=== PATIENT | female | born 1995 | race Two or more races ===

== ENCOUNTER → 2019-12-30 08:47 | Outpatient (BNVA) | payer OTHER, SELFPAY | PROVIDERS: PCP Internal Medicine; Visit Provider Advanced Practice Midwife | DX: Z32.01 Encounter for pregnancy test, result positive (principal) | CPT/HCPCS: 99211 ==

== ENCOUNTER → 2020-01-28 14:10 | Outpatient (BNVA) | payer OTHER, SELFPAY | DX: O98.511 Other viral diseases complicating pregnancy, first trimester (principal); Z3A.09 9 weeks gestation of pregnancy | CPT/HCPCS: 99212 ==

== ENCOUNTER 2020-01-29 15:32 | Outpatient (REF) | payer OTHER, SELFPAY ==
[2020-01-29 16:35] LABS: MANUAL DIFF FLAG NO
[2020-01-29 16:38] LABS: Basophils Percent Auto 0.4 % (0-2); Eosinophils Absolute Auto 0.1 X10*3/uL (0.0-0.4); Eosinophils Percent Auto 0.9 % (0-4); Hematocrit 41.3 % (37-47); Imm Gran Abs Auto 0.02 X10*3/uL (0.00-0.03); Imm Gran Pct Auto 0.2 % (0.0-0.4); Lymphocytes Percent Auto 23.8 % (20-40); Mean Corpuscular HGB Conc 33.9 g/dl (31.0-35.0); Mean Corpuscular Hemoglobin 29.2 pg (27.0-33.0); Mean Corpuscular Volume 86.2 fL (80-98); Mean Platelet Volume 10.5 fL (9.4-12.3); Monocytes Absolute Auto 0.5 X10*3/uL (0.1-1.2); Monocytes Percent Auto 6.6 % (2-11); Neutrophils Absolute Auto 5.6 X10*3/uL (2.0-8.3); Neutrophils Percent Auto 68.1 % (45-73); Platelet Count 289 X10*3/uL (160-400); Red Blood Count 4.79 X10*6/uL (4.20-5.50); White Blood Count 8.2 X10*3/uL (4.8-10.8)
[2020-01-29 17:02] LABS: Amphetamine Screen Urine Not Detected (Not Detect); Barbiturates, Urine Not Detected (Not Detect); Benzodiazepines Screen Urine Not Detected (Not Detect); Cannabinoid Screen Urine Not Detected (Not Detect); Cocaine Screen Urine Not Detected (Not Detect); Opiate Screen Urine Not Detected (Not Detect); Phencyclidine Screen Urine Not Detected (Not Detect)
[2020-01-30 03:29] LABS: Syphilis Screen Nonreactive (Nonreactive)
[2020-01-30 03:41] LABS: HBsAGNum1 0.18 S/CO (0.00-0.99); HIV AB/AG Nonreactive (Nonreactive); HIV Num 1 0.13 S/CO (0.00-0.99); Hepatitis B Surface Antigen Negative (Negative); ~HepC Num1 0.12 S/CO (0.00-0.79); ~Hepatitis C Antibody Nonreactive (Nonreactive)
[2020-01-30 08:51] LABS: Varicella IgG Antibody <135.00 index
== END 2020-01-29 15:33 | disposition home or self-care (01) ==
LOC: HO.LAB 15:32
PROVIDERS: PCP Internal Medicine; Visit Provider Advanced Practice Midwife
DX: Z34.90 Encounter for supervision of normal pregnancy, unspecified, unspecified trimester (principal); Z3A.00 Weeks of gestation of pregnancy not specified
CPT/HCPCS: 36415; 80307; 85025; 86762; 86780; 86787; 86803; 86850; 86900; 86901; 87086; 87340; 87389

== ENCOUNTER 2020-02-17 08:04 | Outpatient (REF) | payer OTHER, SELFPAY ==
[2020-02-17 10:12] LABS: Glucose Fasting 94 mg/dL (60-99)
[2020-02-17 11:20] LABS: Glucose 1 Hour 107 mg/dL
[2020-02-21 04:32] LABS: CT PCR NOT DETECTED (Not Detect.); NG PCR NOT DETECTED (Not Detect.)
== END 2020-02-17 08:05 | disposition home or self-care (01) ==
LOC: HO.LAB 08:04
PROVIDERS: PCP Internal Medicine; Visit Provider Advanced Practice Midwife
DX: Z34.91 Encounter for supervision of normal pregnancy, unspecified, first trimester (principal); Z3A.00 Weeks of gestation of pregnancy not specified
CPT/HCPCS: 82951; 86850; 86900; 86901; 87491; 87591

== ENCOUNTER 2020-02-20 13:06 | Outpatient (REF) | payer OTHER, SELFPAY ==
--- NOTE | 2020-02-20 13:10 | US_ITS ---
EXAMINATION: OBSTETRICAL ULTRASOUND, FIRST TRIMESTER HISTORY: 24-year-old at 13.1 weeks of gestation NT screening High BMI: 35.3 COMPARISON: None in this TECHNIQUE: Real time transabdominal imaging with color and M-mode Doppler. FINDINGS: A single, live IUP CRL of 62.7 mm c/w 12.5wks is noted. Heart Rate: 150 beats per minute. Normal yolk sac seen. NT was 1.33.mm. NB Present The embryo appears sonographically wnl for this GA. Both maternal ovaries are seen and appear normal. GESTATIONAL AGE: 1. Established GA: 13.1 wks 2. GA from [facility]: 12.5 wks ESTIMATED DATE OF DELIVERY: 1. Established MANUEL: 08/26/2020 2. MANUEL from [facility]: 08/29/2020 US/US OB 1T nuc measure IMPRESSION: 1. A single live IUP 2. Size equals dates 3. NT of 1.33 mm MFM Consultation: I reviewed the ultrasound findings along with significance of NT measurement. The NT of less than 3mm is generally reassuring. However, the sensitivity for T21 detection is only 60%. I reviewed the availability of serum aneuploidy screening which includes cell-free DNA and placental protein based tests. I discussed the sensitivity, false-positive rate, and other limitations associated with each test. I also reviewed the availability of invasive diagnostic tests that are associated small but definite risk of miscarriage. We also reviewed the differences between screening tests and diagnostic tests. After our discussion, she opted for the First trimester screening that is based on cell-free DNA or non-invasive testing (NIPT). The result will be faxed to your office in approximately 7 days. A follow up at 18 weeks for survey has been scheduled. Thank you very much for this referral. Majority of this visit was spent reviewing her care and counselling her in face to face time: Time spent 30 min.
== END 2020-02-20 13:07 | disposition home or self-care (01) ==
LOC: HO.US 13:06
PROVIDERS: PCP Internal Medicine; Visit Provider Advanced Practice Midwife
DX: Z36.82 Encounter for antenatal screening for nuchal translucency (principal); Z3A.13 13 weeks gestation of pregnancy
CPT/HCPCS: 76813

== ENCOUNTER → 2020-03-16 08:05 | Outpatient (BNVA) | payer OTHER, SELFPAY | PROVIDERS: PCP Internal Medicine; Visit Provider Advanced Practice Midwife | DX: Z76.89 Persons encountering health services in other specified circumstances (principal) | CPT/HCPCS: 99212 ==

== ENCOUNTER 2020-04-02 08:22 | Outpatient (REF) | payer OTHER, SELFPAY ==
--- NOTE | 2020-04-02 08:27 | US_ITS ---
EXAMINATION: US OBSTETRICAL CLINICAL INFORMATION: 24-year-old at 19.1 gestation Suspected anomaly COMPARISON: 02/20/2020 TECHNIQUE: Real-time transabdominal ultrasound was performed using C1-5 megahertz transducer. FINDINGS: A single, active, fetus is seen in vertex presentation. The placenta is anterior without previa, and the amniotic fluid volume is wnl. MEASUREMENTS: 1. Biparietal Diameter: 4.3 cm; 19.1 wks 2. Occipital Frontal Diameter: 5.4 cm 3. Head Circumference: 16.2 cm; 19.0 wks 4. Abdominal Circumference: 13.4 cm; 19.0 wks 5. Femur Length: 2.9 cm; 18.6 wks 6. Humerus Length: 2.7 cm; 18.4 wks 7. Tibia Length: 2.4 cm; 18.5 wks 8. Ulna Length: N/A cm; wks 9. Lateral ventricle: 0.57 cm 10. Cerebellum: 1.9 cm; 19.3 wks 11. Cisterna Magna: 0 point cm 12. Nuchal Fold: 4.2 mm 13. Heart Rate: 138 beats per minute Rt ovary: normal Lt ovary: normal Cervical length 4.6 cm on T/A. GESTATIONAL AGE: 1. Established GA: 19.1 wks 2. GA from [facility]: 19.0 wks ESTIMATED DATE OF DELIVERY: 1. Established MANUEL: 08/26/2020 2. MANUEL from [facility]: 08/27/2020 ANATOMY: The visualized anatomy includes but not limited to: 1. Cranium: Normal 2. Intracranial anatomy: cavum septum pellucidi, lateral ventricles, choroid plexus, cerebellum, posterior fossa, third and fourth ventricles. 3. face: orbits, lip/palate, profile, nasal bone 4. Heart: four-chamber view of the heart, ventricular septum, foramen ovale, pulmonary vein, left and right outflow tracts, three-vessel view, 3 vessel trachea view, aortic and ductal arches, situs.. 5. Diaphragm: Normal 6. Abdominal wall: Normal 7. Cord Insertion: Normal 8. Spine: Cervical, thoracic, lumbar, sacral. 9. Stomach: Normal size and shape 10. Right Kidney: Normal 11. Left Kidney: Normal 12. 3 vessel cord: Normal 13. Upper extremity: Open hands, fifth digit. 14. Lower extremity: Tibia, fibula, bilateral feet. 15. Bladder: Normal 16. Genitalia: Male, patient aware US/US OB /maternal detail IMPRESSION: 1. Single, living, intrauterine with appropriate biometry. 2. Normal survey DISCUSSION: I reviewed today's ultrasound findings. We discussed the limitations of ultrasound in diagnosing aneuploidy and other congenital abnormalities. I reviewed the differences between screening test and diagnostic test. Amniocentesis was discussed and declined. She was informed that the baseline incidence of congenital abnormalities is approximately 3-5%. Not all these conditions are diagnosable in utero. RECOMMENDATIONS: 1. No further exam scheduled. Thank you for allowing me to participate in her care. Total time 20 (3, 10,7) minutes.
== END 2020-04-02 08:23 | disposition home or self-care (01) ==
LOC: HO.US 08:22
PROVIDERS: PCP Internal Medicine; Visit Provider Advanced Practice Midwife
DX: O35.9XX0 Maternal care for (suspected) fetal abnormality and damage, unspecified, not applicable or unspecified (principal); Z3A.19 19 weeks gestation of pregnancy
CPT/HCPCS: 76811

== ENCOUNTER → 2020-04-16 10:01 | Outpatient (BNVA) | payer OTHER, SELFPAY | PROVIDERS: Visit Provider Advanced Practice Midwife | DX: Z34.02 Encounter for supervision of normal first pregnancy, second trimester (principal) | CPT/HCPCS: 81003; 99212 ==

== ENCOUNTER → 2020-05-14 08:05 | Outpatient (BNVA) | payer OTHER, SELFPAY | PROVIDERS: Visit Provider Advanced Practice Midwife | DX: Z34.92 Encounter for supervision of normal pregnancy, unspecified, second trimester (principal) | CPT/HCPCS: 81003; 99212 ==

== ENCOUNTER 2020-06-07 08:12 | Outpatient (REF) | payer OTHER, SELFPAY ==
[2020-06-07 10:48] LABS: Hematocrit 35.3 % (37-47); Hemoglobin 12.3 g/dl (12.0-16.0); Mean Corpuscular HGB Conc 34.8 g/dl (31.0-35.0); Mean Corpuscular Volume 86.1 fL (80-98); Mean Platelet Volume 9.9 fL (9.4-12.3); Platelet Count 227 X10*3/uL (160-400); Red Cell Distribution Width 12.3 % (11.0-16.0); White Blood Count 8.3 X10*3/uL (4.8-10.8)
[2020-06-07 11:14] LABS: Glucose 1 Hour PP 50gm Dose 111 mg/dL (60-140)
[2020-06-07 11:36] LABS: Syphilis Screen Nonreactive (Nonreactive)
== END 2020-06-07 08:13 | disposition home or self-care (01) ==
LOC: HO.LAB 08:12
PROVIDERS: PCP Internal Medicine; Visit Provider Advanced Practice Midwife
DX: Z34.83 Encounter for supervision of other normal pregnancy, third trimester (principal)
CPT/HCPCS: 36415; 81003; 85027; 86780; 86850; 86900; 86901; 99212

== ENCOUNTER 2024-03-26 15:08 | Emergency (ER) | payer OTHER, SELFPAY ==
[2024-03-26 15:47] VITALS: BP 145/57; PULSE 77; RESP 20; TEMP 36.8; O2SAT 99; BMI 37.9
--- NOTE | 2024-03-26 16:21 | ED_ITS ---
HPI - General Adult General Chief complaint: Wound/Laceration Stated complaint: Finger lac Time Seen by Provider: 03/26/24 19:40 Source: patient Mode of arrival: ambulatory Limitations: no limitations History of Present Illness HPI narrative: This is an otherwise healthy 28-year-old woman who presents for evaluation of left 4th digit laceration. Patient states that she was cutting hot dogs and accidentally cut her left finger. She states pain to the area of her cut. She states no other injuries or complaints. She states no paresthesias. She states unknown last tetanus immunization. She states no other complaints. She reports no note medication allergies. Related Data Home Medications ?Medication ?Instructions ?Recorded ?Confirmed ascorbic acid (vitamin C) 1,000 mg 1 g PO DAILY 01/28/20 02/17/20 tablet Previous Rx's ?Medication ?Instructions ?Recorded vitamin with calcium 1 tab PO DAILY 30 days #30 tabs 12/30/19 no.72-iron 27 mg-folic acid 1 mg tablet ( Vitamins Plus Low Iron) aspirin 81 mg chewable tablet 162 mg (2 x 81 mg) PO DAILY #60 02/17/20 (Aspirin Childrens) tabs Allergies Allergy/AdvReac Type Severity Reaction Status Date / Time No Known Allergies Allergy Verified 03/26/24 15:50 Review of Systems Review of Systems: ROS as per HPI [facility] Past Medical History Medical History Suspected anomaly not found Family History Family History Mother No problems noted. Father Hx of diabetes mellitus Maternal Grandmother History of depression Maternal Grandfather No problems noted. Paternal Grandmother No problems noted. Paternal Grandfather History of prostate cancer Sister No problems noted. Sister No problems noted. Sister No problems noted. Social History Social History Are you a primary home care chaplain to a significant other at home: No Do you presently have visiting nurse or other home services: No Alcohol intake: never Advance Directives: No Advance Directives Information Provided: No Do you have a plan to hurt others: No Plan service: No Current occupational status: employed Current occupational exposures/hazards: No Physical Exam ED Vital Signs: Vital Signs - 24 hr 03/26/24 15:47 03/26/24 19:56 Temperature 98.2 F Pulse Rate 77 70 Respiratory Rate 20 18 Blood Pressure 145/57 H 124/68 Pulse Oximetry 99 97 Oxygen Delivery Method Room Air Room Air BMI result Body Mass Index 37.9 Gen: NAD, AOx3 HEENT: NCAT CV: RRR Pulm: CTAB MSK: Hemostatic subcutaneous laceration to palmar aspect of the mid left 4th digit measuring approximately 1.5 cm, intact active range motion left 4th digit flexion/extension Neuro: Grossly non focal, sensation intact to light touch in bilateral upper extremity dermatomes C6-C8 Course Course Course Narrative: RME, this is a rapid medical exam performed by Valerio Pena please refer to primary provider for complete H&P- 28 old female presents for evaluation of a 4th finger laceration. She has an about 2 cm linear laceration to the ventral surface of the left 4th finger. Bleeding is controlled Procedures Laceration Laceration 1: Site: hand Side (If applicable): left Size (cm): 1.5 Description: linear Depth: simple, single layer Local Anesthetic: lidocaine 1% Amount of anesthesia used (mL): 4 Pre-repair: wound explored and irrigated extensively Skin layer closed with: nylon Size (cm): 4-0 Number of sutures: 5 Technique: simple, interrupted Medical Decision Making Medical Decision Making MDM Narrative: Differential diagnosis includes, but is not limited to laceration, abrasion Patient is afebrile and hemodynamically stable on room air. Exam is overall reassuring with subcutaneous laceration to the left 4th digit. She is neurovascularly intact in the left upper extremity. Laceration was cleaned with soap and water and irrigated extensively. Lacerations were repaired as above with no complication. Tetanus immunization is updated. Bacitracin applied to the wound. Patient is counseled on appropriate wound care and need for suture removal in 1 week. On re-examination, patient is well-appearing and in no acute distress. There is no indication for further emergent evaluation in this otherwise well-appearing patient as above. ?Patient is provided written and verbal instructions, educational materials, recommendations for outpatient follow-up, strict return precautions and teach back is performed. ?Patient states understanding and agreement with plan of care. ?Patient is discharged home in stable and improved condition. Admission/Observation Consideration of admission/observation: Escalation of care including admission/observation considered Discharge Plan Discharge Clinical Impression: Laceration of finger Patient Disposition: Home, Self-Care Instructions: Finger Laceration (ED) Additional Instructions: You were evaluated in the emergency room for an injury to your finger. The cut on your finger was repaired with stitches. Please keep stitches dry for 24 hours. After 24 hours, please wash with soap and water. After your first wash, please apply a triple antibiotic ointment. Please continue to wash the cut with soap and water at least 2-3 times per day. Please apply a triple antibiotic ointment such as Neosporin each time. Please return to the emergency room and a walk-in/urgent care for stitch removal in 7 days. Return to the emergency room with any new concerns or symptoms. Prescriptions: No Action Vitamin Plus Low Iron 27 mg iron- 1 mg tablet 1 tab PO DAILY 30 Days Qty: 30 11RF aspirin [Aspirin Childrens] 81 mg tablet,chewable 162 mg PO DAILY Qty: 60 7RF Rx Instructions: start 2 tabs daily at bedtime at 14-16weeks and continue daily until 2 weeks ascorbic acid (vitamin C) 1,000 mg tablet 1 g PO DAILY Print Language: Ecuadorean
[2024-03-26 19:56] VITALS: BP 124/68; PULSE 70; RESP 18; O2SAT 97
[2024-03-26] MEDS: Diphth,Pertus(ACell),Tet Adult 0.5 ML SYRINGE IM (20:55)
[2024-03-26] MEDS: Lidocaine HCl 1 % 20 ML VIAL SUBCUT (20:55)
[2024-03-26] MEDS: Bacitracin Oint 0.9 GM PACKET 1 APPL TOPICAL (20:55)
[2024-03-26 20:57] VITALS: BP 110/59; PULSE 76; RESP 18; TEMP 36.6; O2SAT 98
[2024-03-26 21:02] VITALS: BP 110/59; PULSE 76; RESP 18; TEMP 36.6; O2SAT 98
== END 2024-03-26 21:02 | disposition home or self-care (01) ==
PROVIDERS: Emergency Provider Emergency Medicine
DX: S61.215A Laceration without foreign body of left ring finger without damage to nail, initial encounter (principal); W26.0XXA Contact with knife, initial encounter; M79.645 Pain in left finger(s); Y93.G9 Activity, other involving cooking and grilling; Y92.009 Unspecified place in unspecified non-institutional (private) residence as the place of occurrence of the external cause; Y99.9 Unspecified external cause status; Z23 Encounter for immunization
CPT/HCPCS: 12001; 90471; 90715; 99283; 99284; J2003

== ENCOUNTER 2024-05-27 07:55 | Outpatient (AMB) | payer OTHER, SELFPAY ==
--- NOTE | 2024-05-27 08:07 | A.OFFPC_ITS ---
Vital Signs 05/27/24 08:08 Height 5 ft 7 in Weight 244 lb 4 oz BMI 38.3 BP 110/80 Blood Pressure Location Lt brachial Position Sitting Pulse 78 Pulse Source Pulse Oximeter Temp 97.1 F Temp Source Temporal Artery Scan Pulse Oximetry (%) 97 Oxygen Delivery Method Room Air Intake Visit Reasons: establish care Intake Note: Patient is here to re-establish care. 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 [employer] Required: No Dietitian Research: Present Accompanied by: Son Allergies No Known Allergies Allergy (Verified 05/27/24 08:08) Medication List - Last Reconciled 05/27/24 by Katja Kennedy PA-C multivitamin (Daily Multi-Vitamin tablet) 1 tab PO DAILY Tobacco use date assessed: 05/27/24 Dental Screening Dental Screen Date: 05/27/24 Did you have a dental visit in the last 12 months?: Yes Did you have a dental problem in the last 6 months where you did not have access to dental care?: No Was dental information given to patient?: Patient has dentist HPI establish care HPI Details 28-year-old female coming to the office for the 1st time. Presenting with concerns of weight gain and hair loss. She experiences significant fluctuations in weight despite proper diet and exercise, and she loses a lot of hair during brushing. No recent abnormal blood work; however, there is a need to explore potential PCOS due to correlated symptoms. Current lifestyle includes exercise four times a week, cardio, and weightlifting. He continues to follow with [facility] gy[facility]cology was recently seen and had updated Pap smear. She also mentions occasionally having difficulty sleeping at night. [facility] Medical History (Updated 05/27/24 @ 09:07 by Katja Kennedy PA-C) Suspected anomaly not found Surgical History History of neck surgery Family History Mother No problems noted. Father Hx of diabetes mellitus Maternal Grandmother History of depression Maternal Grandfather No problems noted. Paternal Grandmother No problems noted. Paternal Grandfather History of prostate cancer Sister No problems noted. Sister No problems noted. Sister No problems noted. 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 1. Little interest or pleasure in doing things: not at all 2. Feeling down, depressed, or hopeless: not at all 3. Trouble falling or staying asleep, or sleeping too much: not at all 4. Feeling tired or having little energy: several days 5. Poor appetite or overeating: not at all 6. Feeling bad about yourself - or that you are a failure or have let yourself or your family down: not at all 7. Trouble concentrating on things, such as reading the newspaper or watching television: not at all 8. Moving or speaking so slowly that other people could have noticed. Or the opposite - being so fidgety or restless that you have been moving around a lot more than usual: not at all 9. Thoughts that you would be better off or of hurting yourself in some way: not at all Total score: 1 Depression Screening Interpretation: Negative Depression Screening Done: Yes Source: Developed by Drs. Vito Ayon, Allison Alvarado, Josesito Rubio and colleagues, with an educational partha from [employer]. Thrive Questionnaire Date Thrive assessed: 05/20/24 I am a: Patient What is your living situation today?: I have a steady place to live Within the past 12 months, did the food you bought not last and you didn't have the money to get more?: Never true Within the past 12 months, did you worry whether your food would run out before you got money to buy more?: Never true Do you have trouble paying for medicines?: No Do you have trouble getting transportation to medical appointments?: No Do you have trouble paying your heating and electricity bill?: No Do you have trouble taking care of your child, family member or friend?: No Do you have trouble with day-to-day activities such as bathing, preparing meals, shopping, managing finances, etc.?: No Are you currently unemployed and looking for a job?: No Are you interested in more education?: No Please select the resources that you would like help with: None Currently or been in a relationship where the following occur: No concerns reported THRIVE Score: 0 AUDIT C Alcohol Use Questionnaire (AUDIT-C) 1. How often do you have a drink containing alcohol?: 2-4 times a month 2. How many drinks containing alcohol do you have on a typical day when you are drinking?: 3 or 4 3. How often do you have six or more drinks on one occasion?: Less than monthly Total Score: 4 NEVILLE-7 AMB Questionnaire NEVILLE-7 Date NEVILLE - 7 assessed: 05/27/24 Feeling nervous, anxious, or on edge: 0 = Not at all Not being able to stop or control worryin = Not at all Worrying too much about different things: 0 = Not at all Trouble relaxin = Not at all Being so restless that it is hard to sit still: 0 = Not at all Becoming easily annoyed or irritable: 0 = Not at all Feeling afraid as if something awful might happen: 0 = Not at all Total NEVILLE-7 score (0-4 normal; 5-9 mild; 10-14 moderate; 15-21 severe): 0 Source: Developed by Drs. Vito Ayon, Allison Alvarado, Josesito Rubio and colleagues, with an educational partha from [employer]. NEVILLE-7 Assessment Billing NEVILLE-7 Assessment Tool: NEVILLE-7 Assessment 82008 Review of Systems Const Denies body aches, Denies chills, Denies fever(s), Denies headache(s), Denies poor appetite and Reports weight gain Eyes Reports no additional complaints ENT Denies dizziness and Denies headache(s) Card Denies chest pain, Denies syncope, Denies edema, Denies lightheadedness and Denies dyspnea Resp Denies cough and Denies dyspnea GI Denies abdominal pain, Denies nausea and Denies vomiting Reports no additional complaints Musc Reports no additional complaints and Denies abnormal gait Skin/Breast Reports system reviewed and no additional complaints, except as documented Neuro Denies abnormal gait, Denies dizziness, Denies syncope and Denies headache(s) Psych Reports no additional complaints Physical exam (Primary Care) Depression Screening Interpretation: Negative Thrive Assessment: Date of Thrive Assessment Date Thrive assessed 05/20/24 05/20/24 14:00 Currently or been in a relationship where the following occur: No concerns reported Const General: cooperative, healthy appearing, comfortable and no acute distress Orientation/consciousness: patient oriented x3 HENMT Head: Yes normocephalic Ears: hearing grossly normal bilaterally General nose exam: Normal external nose present Eyes General: appearance normal, both eyes and all related structures Conjunctivae: conjunctivae normal Neck Neck: Yes full ROM and Yes no lymphadenopathy Resp Effort & Inspection: normal respiratory effort Auscultation: clear to auscultation bilaterally, no crackles, no rales, no rhonchi and no wheezes Cardio Rate: regular rate Rhythm: regular rhythm Skin General skin exam: no rashes or lesions noted Neuro General: patient oriented x3 Gait exam (Neuro): Normal gait present Extrem General: Yes normal to inspection, Yes full ROM and No edema Psych Affect: normal affect Attitude: cooperative Insight: Good insight present (Psych) Judgement: Good judgement present (Psych) Coding Level of Care Code New Pt Level 4 (10032) Diagnoses Hair loss L65.9 Screening for hypercholesterolemia Z13. Obesity (BMI 35.0-39.9 without comorbidity) E66.9 Insomnia G47.00 Additional Codes NEVILLE-7 Assessment Billing - NEVILLE-7 Assessment Tool: NEVILLE-7 Assessment 79643 ([id number]) Assessment & Plan Assessment & Plan (1) Hair loss: Code(s): L65.9 - Nonscarring hair loss, unspecified Category: Medical Plan: For hair loss, initial management includes an [id number] biotin supplement, assessing for effectiveness before dermatological referral consideration. Plan to order for blood work to look for underlying cause as well. (2) Screening for hypercholesterolemia: Code(s): Z13.220 - Encounter for screening for lipoid disorders Category: Medical Plan: Ordered for updated blood work. (3) Obesity (BMI 35.0-39.9 without comorbidity): Code(s): E66.9 - Obesity, unspecified Category: Medical Plan: Blood work is to be obtained for hormone levels, thyroid, and metabolic markers to explore the suspected relation to weight gain and potential PCOS concerns. Given familial history, screening thyroid function is included as a preventive measure. Hormone panels shall probe hormone imbalances contributive to PCOS and direct further treatment approaches. Nutritional guidance will be provided through a classified ad clerk referral, emphasizing the coordination of proper diet with physical activity for effective weight management. (4) Insomnia: Code(s): G47.00 - Insomnia, unspecified Category: Medical Plan: Sleep disturbances could be managed with melatonin or Benadryl, adopting prescription options if problems persist. Denies any hypersomnolence or waking up to shortness of breath or choking episodes Plan This note was constructed using voice recognition software. While every effort has been made to ensure accuracy and fringing machine operator, still areas may have been included sometimes these areas may affect the content or meeting of the given symptoms. Total time spent caring for the patient today was 30 minutes. This includes time spent before the visit reviewing the chart, time spent during the visit, and time spent after the visit and documentation. Patient was informed and verbally consented to the use of an ambient scribe for clinic note documentation during this visit. Orders: Orders Free T4 (Free Thyroxine) Today Z00.00 - Encounter for general adult medical examination without abnormal findings Vitamin B12 and Folate Today Z00.00 - Encounter for general adult medical examination without abnormal findings Lipid Panel Today Z13.220 - Encounter for screening for lipoid disorders Complete Blood Count Auto Diff Today Z00.00 - Encounter for general adult medical examination without abnormal findings Comprehensive Met. Panel Today Z00.00 - Encounter for general adult medical examination without abnormal findings TSH reflex Free T4 Today Z00.00 - Encounter for general adult medical examination without abnormal findings Vitamin D 25-OH Total Today Z00.00 - Encounter for general adult medical examination without abnormal findings Cortisol Random Today E66.9 - Obesity, unspecified IRON PROFILE Today L65.9 - Nonscarring hair loss, unspecified Referrals Auxiliary Plant Operator Nutrition Referral E66.9 - Obesity, unspecified
[2024-05-27 08:08] VITALS: BP 110/80; PULSE 78; TEMP 36.2; O2SAT 97; BMI 38.3
== END 2024-05-27 08:36 | disposition home or self-care (01) ==
LOC: HO.HMCH 07:56
DX: G47.00 Insomnia, unspecified (principal); L65.9 Nonscarring hair loss, unspecified; E66.9 Obesity, unspecified; Z68.38 Body mass index [BMI] 38.0-38.9, adult; Z13.220 Encounter for screening for lipoid disorders

== ENCOUNTER 2024-05-27 07:55 | Outpatient (REF) | payer OTHER, SELFPAY ==
[2024-05-27 09:06] LABS: MANUAL DIFF FLAG NO
[2024-05-27 09:35] LABS: Basophils Percent Auto 0.6 % (0-2); Eosinophils Absolute Auto 0.1 X10*3/uL (0.0-0.4); Eosinophils Percent Auto 1.3 % (0-4); Hematocrit 42.1 % (37.0-47.0); Hemoglobin 14.4 g/dl (12.0-16.0); Imm Gran Abs Auto 0.01 X10*3/uL (0.00-0.03); Imm Gran Pct Auto 0.2 % (0.0-0.4); Lymphocytes Absolute Auto 1.9 X10*3/uL (1.2-4.9); Lymphocytes Percent Auto 40.9 % (20-40); Mean Corpuscular HGB Conc 34.2 g/dl (31.0-35.0); Mean Corpuscular Hemoglobin 29.7 pg (27.0-33.0); Mean Corpuscular Volume 86.8 fL (80.0-98.0); Mean Platelet Volume 9.9 fL (9.4-12.3); Monocytes Absolute Auto 0.4 X10*3/uL (0.1-1.2); Monocytes Percent Auto 8.7 % (2-11); Neutrophils Absolute Auto 2.3 x10*3/uL (2.0-8.3); Neutrophils Percent Auto 48.3 % (45-73); Platelet Count 270 X10*3/uL (160-400); Red Blood Count 4.85 X10*6/uL (4.20-5.50); Red Cell Distribution Width 11.8 % (11.0-16.0); White Blood Count 4.7 X10*3/uL (4.8-10.8)
[2024-05-27 10:17] LABS: Alanine Aminotransferase 24 U/L (0-31); Albumin Level 3.9 g/dL (3.5-5.0); Alkaline Phosphatase 72 U/L (39-117); Anion Gap 11 (12-20); Aspartate Amino Transferase 20 U/L (5-31); Bilirubin Total 0.7 mg/dL (0.0-1.0); Blood Urea Nitrogen 10 mg/dL (9-16); Calcium 8.7 mg/dL (8.4-10.2); Carbon Dioxide 24 mmol/L (22-29); Chloride 110 mmol/L (96-108); Cholesterol 177 mg/dL (<200); Estimated Glomerular Filt Rate > 60; Glucose Random 102 mg/dL (60-115); HDL Cholesterol 53 mg/dL (>40); Iron 131 mcg/dL (30-160); LDL Cholesterol Calculated 94 mg/dL (<100); Percent Iron Saturation 38 % (15-50); Potassium 3.8 mmol/L (3.3-5.1); Sodium 141 mmol/L (135-145); Total Iron Binding Capacity 341 mcg/dL (228-428); Total Protein 7.2 g/dL (6.5-8.0); Triglycerides 151 mg/dL (<150); Unsaturated Iron Binding 210 ug/dL
[2024-05-27 10:23] LABS: Free T4 (Free Thyroxine) 0.98 ng/dL (0.71-1.85); TSH reflex Free T4 2.18 uIU/mL (0.32-4.0); Vitamin D 25-OH Total 28.6 ng/mL (>30)
[2024-05-27 10:41] LABS: Folate > 20.0 ng/mL (> or = 4.0); Vitamin B12 719 pg/mL (200-900)
[2024-05-27 10:47] LABS: Cortisol Random 11.4 ug/dL
== END 2024-05-27 07:56 | disposition home or self-care (01) ==
LOC: HO.LAB 07:55
DX: L65.9 Nonscarring hair loss, unspecified (principal); E66.9 Obesity, unspecified; Z68.38 Body mass index [BMI] 38.0-38.9, adult; G47.00 Insomnia, unspecified; Z00.00 Encounter for general adult medical examination without abnormal findings; Z13.220 Encounter for screening for lipoid disorders
CPT/HCPCS: 36415; 80053; 80061; 82306; 82533; 82607; 82746; 83540; 84439; 84443; 85025; 96127; 99202

== ENCOUNTER 2024-06-23 09:07 | Outpatient (AMB) | payer OTHER, SELFPAY ==
[2024-06-23 09:47] VITALS: BMI 38.7
--- NOTE | 2024-06-23 09:47 | A.OFFVIS_ITS ---
VS Expanded 06/23/24 09:47 06/23/24 09:54 Height 5 ft 7 in 5 ft 7 in Weight 246 lb 14.684 oz 247 lb BMI 38.7 38.7 Intake Visit Reasons: Obesity Allergies No Known Allergies Allergy (Verified 05/27/24 08:08) Nutrition Presentation Details: Pt presents for MNT for obesity food frequency fruit: 0-1/d ve-3 /wk dairy 4/d starches > 20 fish 0-1/wk etoh-- smoking--- physical activity ADL BS Monitoring Most Recent Diabetes Results: Cholesterol 177 mg/dL (<200) 05/27/24 HDL Cholesterol 53 mg/dL (>40) 05/27/24 Triglycerides 151 mg/dL (<150) H 05/27/24 Creatinine 0.66 mg/dL (0.5-1.4) 05/27/24 Blood Urea Nitrogen 10 mg/dL (9-16) 05/27/24 Sodium 141 mmol/L (135-145) 05/27/24 Potassium 3.8 mmol/L (3.3-5.1) 05/27/24 Chloride 110 mmol/L (96-108) H 05/27/24 Carbon Dioxide 24 mmol/L (22-29) 05/27/24 Calcium 8.7 mg/dL (8.4-10.2) 05/27/24 AST 20 U/L (5-31) 05/27/24 ALT 24 U/L (0-31) 05/27/24 Total Protein 7.2 g/dL (6.5-8.0) 05/27/24 Albumin 3.9 g/dL (3.5-5.0) 05/27/24 BGW-Kukdqgp-Mf.Jeor Equation Height: 5 ft 7 in Weight: 247 lb Resting Metabolic Rate: 1874.28 Calculated Activity Level: Sedentary Calories Needed to Maintain Weight: 2249.14 Diagnosis Nutrition problem #1: overweight/obesity As related to (etiology) #1: lack of nutrit education As evidenced by (sign/symptom) #1: knowledge deficit of diet [facility] Medical History (Updated 05/27/24 @ 09:07 by Katja Kennedy PA-C) Suspected anomaly not found Surgical History History of neck surgery Family History Mother No problems noted. Father Hx of diabetes mellitus Maternal Grandmother History of depression Maternal Grandfather No problems noted. Paternal Grandmother No problems noted. Paternal Grandfather History of prostate cancer Sister No problems noted. Sister No problems noted. Sister No problems noted. Social History Housing: House Are you a primary resident care aide to a significant other at home: No Do you presently have visiting nurse or other home services: No 75 years or older and lives alone: No Alcohol intake: current Alcohol intake frequency: a few times a month Patient Tobacco Use Status: Never used Tobacco e-Cigarette/Vaping Use: Never Used Second Hand Smoke Exposure: No service: No Current occupational status: employed Current occupation: [employer] Current occupational exposures/hazards: No Cognitive needs: No Hearing needs: No Vision needs: No Female Reproductive History Menstrual Age of Menarche: 9 Assessment & Plan Assessment & Plan (1) Obesity (BMI 35.0-39.9 without comorbidity): Code(s): E66.9 - Obesity, unspecified Category: Medical Plan: Wt: 112 Kg ( 07/04 ) Est kcal needs as per MSJ: 2200 (40% carb, 30% protein/fat) Est fluid needs as per 25-30 ml/d: 3400 Est prot per day as per 1 g/kg bw: 112 Recommend fiber intake : 8-10 g per day and gradually increase to 25-28 g per day for women and 35-38 g for men or as tolerated Recommend sodium intake per day : less than 2000 mg Educated patient on: ( R = reviewed V = verbalizes understanding N/R = needs review N/A = not applicable * Food sources of carbohydrate, adequate serving sizes and its role in various health conditions: R V N/R * Differences between complex carbohydrates a simple carbohydrates, role of fiber in diet: R * Lean protein sources of foods: R V NR * Differences between types of fats and role in diet (mono on saturated fat fatty acids, saturated fatty acids, trans fats): R * Food sources of sodium in salt and healthy modifications for heart health in kidney health: R V R/V * Vitamins and minerals: R V N/R * Healthy plate method concept: R * Physical activity: Benefits a precaution: R V N/R Patient Instructions: Work on having 3 meals/day meal planning following healthy plate 60 g carb per meal and 0-20 g as snack Coding Level of Care Code Nutr Indiv Intake (53689) Diagnoses Obesity (BMI 35.0-39.9 without comorbidity) E66.9 Time Spent (min) 30
[2024-07-04 23:11] VITALS: BMI 38.7
== END 2024-06-23 10:20 | disposition home or self-care (01) ==
LOC: HO.ENCR 09:08
PROVIDERS: Visit Provider Dietitian, Registered
DX: E66.9 Obesity, unspecified (principal)

== ENCOUNTER → 2024-06-23 09:07 | Outpatient (BNVA) | payer OTHER, SELFPAY | PROVIDERS: Visit Provider Dietitian, Registered | DX: E66.9 Obesity, unspecified (principal); Z68.38 Body mass index [BMI] 38.0-38.9, adult | CPT/HCPCS: 97802 ==

== ENCOUNTER 2024-07-30 08:57 | Outpatient (AMB) | payer OTHER, SELFPAY ==
--- NOTE | 2024-07-30 09:01 | MHC.PC.OV ---
Vital Signs 07/30/24 09:02 Height 5 ft 7 in Weight 238 lb 4 oz BMI 37.3 BP 110/60 Blood Pressure Location Lt brachial Position Sitting Pulse 66 Pulse Source Pulse Oximeter Temp 96.9 F Temp Source Temporal Artery Scan Pulse Oximetry (%) 98 Oxygen Delivery Method Room Air Intake Visit Reasons: Annual exam Intake Note: Patient is here today for a physical. Supervisor Education Required: No Insurance Agent: Present Accompanied by: Son Allergies No Known Allergies Allergy (Verified 07/30/24 09:33) Medication List - Last Reconciled 07/30/24 by Katja Kennedy PA-C multivitamin (Daily Multi-Vitamin tablet) 1 tab PO DAILY Tobacco use date assessed: 07/30/24 Dental Screening Dental Screen Date: 05/27/24 HPI Annual exam HPI Details 28-year-old female with past medical history of insomnia last seen 05/2024 coming in for annual exam. Presenting for an annual wellness examination focused on hair loss. The hair loss issue has been ongoing, with improvements noted due to changes in hair management and vitamin intake. She has not pursued minoxidil treatment yet. Additionally, the patient's vitamin D levels are low according to recent tests, yet she denies symptoms such as fatigue or mood disturbances. As part of her weight management, she has lost 9 pounds recently through dietary modifications and exercise without pursuing any pharmacological or surgical options. she is UTD on pap smears through [facility] and being seen in March by [facility] vaccines: UTD [facility] Medical History Suspected anomaly not found Surgical History History of neck surgery Family History Mother No problems noted. Father Hx of diabetes mellitus Maternal Grandmother History of depression Maternal Grandfather No problems noted. Paternal Grandmother No problems noted. Paternal Grandfather History of prostate cancer Sister No problems noted. Sister No problems noted. Sister No problems noted. Social History Housing: House Are you a primary careers adviser to a significant other at home: No Do you presently have visiting nurse or other home services: No 75 years or older and lives alone: No Alcohol intake: current Alcohol intake frequency: a few times a month Patient Tobacco Use Status: Never used Tobacco e-Cigarette/Vaping Use: Never Used Second Hand Smoke Exposure: No service: No Current occupational status: employed Current occupation: [employer] Current occupational exposures/hazards: No Cognitive needs: No Hearing needs: No Vision needs: No Female Reproductive History Menstrual Age of Menarche: 9 Questionnaire Thrive Questionnaire Date Thrive assessed: 05/20/24 I am a: Patient What is your living situation today?: I have a steady place to live Within the past 12 months, did the food you bought not last and you didn't have the money to get more?: Never true Within the past 12 months, did you worry whether your food would run out before you got money to buy more?: Never true Do you have trouble paying for medicines?: No Do you have trouble getting transportation to medical appointments?: No Do you have trouble paying your heating and electricity bill?: No Do you have trouble taking care of your child, family member or friend?: No Do you have trouble with day-to-day activities such as bathing, preparing meals, shopping, managing finances, etc.?: No Are you currently unemployed and looking for a job?: No Are you interested in more education?: No Please select the resources that you would like help with: None Currently or been in a relationship where the following occur: No concerns reported THRIVE Score: 0 NEVILLE-7 AMB Questionnaire NEVILLE-7 Date NEVILLE - 7 assessed: 05/27/24 Source: Developed by Drs. Vito Ayon, Allison Alvarado, Josesito Rubio and colleagues, with an educational partha from [employer]. Review of Systems Const Denies body aches, Denies fatigue, Denies fever(s), Denies frequent falls, Denies headache(s) and Denies weakness Eyes Reports no additional complaints and Denies change in vision ENT Denies dysphagia, Denies dizziness, Denies facial pain, Denies headache(s), Denies nasal congestion and Denies odynophagia Card Denies chest pain, Denies syncope, Denies irregular heart rhythm, Denies leg edema, Denies lightheadedness and Denies dyspnea Resp Denies cough and Denies dyspnea GI Denies abdominal pain, Denies constipation, Denies dysphagia, Denies dyspepsia, Denies diarrhea, Denies nausea, Denies odynophagia and Denies vomiting Denies urinary frequency, Denies dysuria, Denies urinary hesitancy and Denies urinary urgency Musc Denies back pain and Denies myalgias Skin/Breast Reports system reviewed and no additional complaints, except as documented Neuro Denies dizziness, Denies syncope, Denies frequent falls, Denies headache(s) and Denies weakness Psych Reports no additional complaints Endo Denies fatigue Physical exam (Primary Care) Vital Signs: Last Vital Signs Temp 96.9 F 07/30/24 09:02 Pulse 66 07/30/24 09:02 BP 110/60 07/30/24 09:02 Pulse Ox 98 07/30/24 09:02 Oxygen Delivery Method Room Air 07/30/24 09:02 BMI result Body Mass Index 37.3 Tobacco/Smoking Status: Tobacco use Status Tobacco use date assessed 07/30/24 07/30/24 09:05 Patient Tobacco Use Status Never used Tobacco 07/30/24 09:05 e-Cigarette/Vaping Use Never Used 07/30/24 09:05 Thrive Assessment: Date of Thrive Assessment Date Thrive assessed 05/20/24 07/30/24 09:05 Currently or been in a relationship where the following occur: No concerns reported Const General: cooperative, healthy appearing, comfortable and no acute distress Orientation/consciousness: patient oriented x3 HENMT Head: Yes normocephalic Ears: hearing grossly normal bilaterally, external ears normal, TM's normal bilaterally and EAC's normal General nose exam: Normal external nose present Face and sinus: Yes normal facial exam and Yes sinuses nontender Mouth: Normal oral and palatal mucosa present and tongue normal Throat: Yes posterior oropharynx normal Eyes General: appearance normal, both eyes and all related structures Conjunctivae: conjunctivae normal Pupils: Equal, round and reactive pupils present EOM: EOMs intact bilaterally and No Nystagmus present Neck Neck: Yes normal visual inspection, Yes full ROM and Yes no lymphadenopathy Chest Chest palpation & inspection: normal inspection of the chest Resp Effort & Inspection: normal respiratory effort Auscultation: clear to auscultation bilaterally, no crackles, no rales, no rhonchi, no wheezes and breath sounds present Cardio Rate: regular rate Rhythm: regular rhythm Peripheral pulses: radial pulses present and dorsalis pedis present GI Inspection: Yes normal to inspection and No Abdominal wall edema Palpation (GI): Soft to palpation, not firm and nontender Auscultation: normal bowel sounds Rectal Exam - Female: deferred General: Yes no CVA tenderness Back/Spine/Pelvis Back: no CVA tenderness Skin General skin exam: no rashes or lesions noted Neuro General: patient oriented x3 Cranial nerves: Yes Equal, round and reactive pupils present, Yes Midline tongue present, Yes Ability to bilaterally elevate shoulders present and No Nystagmus present Gait exam (Neuro): Normal gait present Extrem General: Yes normal to inspection, Yes full ROM, No no pedal edema and No edema Psych Speech and movement: Normal speech and movement present Affect: normal affect Insight: Good insight present (Psych) Judgement: Good judgement present (Psych) Coding Level of Care Code Est Pt Prev Care 18-39y(84292) Diagnoses Annual physical exam Z00.00 Hair loss L65.9 Obesity (BMI 35.0-39.9 without comorbidity) E66.9 Insomnia G47.00 Vitamin D deficiency E55.9 Assessment & Plan Assessment & Plan (1) Annual physical exam: Code(s): Z00.00 - Encounter for general adult medical examination without abnormal findings Category: Medical Plan: Patient is up-to-date on all recommended routine screenings and vaccinations for her age. Blood work is up-to-date and has been reviewed with the patient today. At this time patient is cleared to follow up yearly or sooner if needed. She will continue to work with endocrinology for diet and nutrition and see Dermatology for hair loss. (2) Hair loss: Code(s): L65.9 - Nonscarring hair loss, unspecified Category: Medical Plan: For hair loss, initial management includes continuation of [id number] biotin supplement. Recommended use of topical minoxidil and referral was placed to Dermatology as well. Patient has seen an improvement in her hair loss. (3) Obesity (BMI 35.0-39.9 without comorbidity): Code(s): E66.9 - Obesity, unspecified Category: Medical Plan: Healthy diet and regular exercise is encouraged. Currently working with endocrinology for nutrition. Noted 9 lb weight loss since last visit. (4) Insomnia: Code(s): G47.00 - Insomnia, unspecified Category: Medical Plan: Sleep disturbances could be managed with melatonin or Benadryl, adopting prescription options if problems persist. Denies any hypersomnolence or waking up to shortness of breath or choking episodes. Patient states she has been practicing good sleep hygiene and has noticed an improvement in her sleep. I did recommend the use of [id number] regimens if needed. (5) Vitamin D deficiency: Code(s): E55.9 - Vitamin D deficiency, unspecified Category: Medical Plan: Recommend daily [id number] supplement Plan The patient will begin using minoxidil for hair loss while continuing her current vitamin regimens. For vitamin D deficiency, she will purchase [id number] supplements as insurance will not cover the prescription. 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 A referral to dermatology was discussed due to limited providers under her insurance. The patient is current on vaccinations and screenings, including the tetanus vaccine and Pap smear. Follow-up will be scheduled annually unless issues arise sooner. This note was constructed using voice recognition software. While every effort has been made to ensure accuracy and book author, still areas may have been included sometimes these areas may affect the content or meeting of the given symptoms. Total time spent caring for the patient today was 30 minutes. This includes time spent before the visit reviewing the chart, time spent during the visit, and time spent after the visit and documentation. Patient was informed and verbally consented to the use of an ambient scribe for clinic note documentation during this visit. Orders: Referrals Dermatology Referral L65.9 - Nonscarring hair loss, unspecified
[2024-07-30 09:02] VITALS: BP 110/60; PULSE 66; TEMP 36.1; O2SAT 98; BMI 37.3
== END 2024-07-30 09:44 | disposition home or self-care (01) ==
LOC: HO.HMCH 08:58
DX: Z00.00 Encounter for general adult medical examination without abnormal findings (principal); L65.9 Nonscarring hair loss, unspecified; Z68.37 Body mass index [BMI] 37.0-37.9, adult; E66.9 Obesity, unspecified; G47.00 Insomnia, unspecified; E55.9 Vitamin D deficiency, unspecified

== ENCOUNTER → 2024-07-30 08:57 | Outpatient (BNVA) | payer OTHER, SELFPAY | DX: Z00.00 Encounter for general adult medical examination without abnormal findings (principal); L65.9 Nonscarring hair loss, unspecified; E66.9 Obesity, unspecified; G47.00 Insomnia, unspecified; E55.9 Vitamin D deficiency, unspecified; Z68.37 Body mass index [BMI] 37.0-37.9, adult | CPT/HCPCS: 99395 ==